=== PATIENT | male | born 1980 | race Caucasian/White ===

== ENCOUNTER 2019-01-27 05:04 | Emergency (ER) | payer OTHER ==
[~2019-01-27] VITALS: Ht 177.8 cm; Wt 86.2 kg
[2019-01-27 05:05] VITALS: BP_SYST 141
[2019-01-27 05:48] VITALS: BP_SYST 141
== END 2019-01-27 05:32 | disposition home or self-care (01) ==
LOC: SED 05:04
DX: Z02.89 Encounter for other administrative examinations (principal)
CPT/HCPCS: 99283